=== PATIENT | male | born 1950 | race Caucasian/White ===

== ENCOUNTER 2016-05-26 16:49 | Emergency (ER) | payer OTHER ==
--- NOTE | 2016-05-26 18:03 | RADIOLOGY REPORT ---
EXAMINATION: XR CHEST CLINICAL INFORMATION: Cough. Evaluate for pneumonia. COMPARISON: None. TECHNIQUE: PA and lateral views of the chest were obtained. FINDINGS: PA and lateral views of the chest demonstrate pulmonary hypoinflation. There is a left retrocardiac opacity. This could reflect atelectasis although infection cannot be excluded. No pleural effusions or pneumothoraces. Cardiomediastinal contours are within normal limits. Soft tissues are unremarkable. No acute osseous abnormality is identified. IMPRESSION: A left retrocardiac opacity could reflect atelectasis given low lung volumes although superimposed pneumonia cannot be excluded in the appropriate clinical setting.
--- NOTE | 2016-05-26 18:24 | ED DYSPNEA/ASTHMA COMPLAINT ---
History of Present Illness General Chief Complaint: Upper Respiratory Sx/Fever Stated Complaint: ?PNA Source: patient, family Exam Limitations: no limitations Vital Signs & Intake/Output Vital Signs & Intake/Output Vital Signs Date Time Temp Pulse Resp B/P Pulse O2 O2 Flow FiO2 Ox Delivery Rate 05/27 2015 97.4 76 16 153/78 96 Room Air 05/26 1707 96.4 77 18 137/81 97 Room Air Allergies Coded Allergies: No Known Allergies (05/26/16) Triage Note: TRIAGE; PT TO ED FOR NOT FEELING WELL. [facility]. TOLD HE MAY HAVE WALKING PNA, AND PLACED ON DOXYCYCLINE. CALLED PCP AND HAS APPT FOR TOMORROW BUT DUE TO SNOW TOMORROW SUGGESTED TO COME HERE. STATES HE HAS A NONPRODUCTIVE COUGH, AFEBRILE IN TRIAGE AT 96.4. DENIES ANY SOB, DENIES ANY CP. Triage Nurses Notes Reviewed? yes HPI: Patient sensitivity ER for evaluation of a nonproductive cough and chills. [facility] and has been on 2 different antibiotics if his symptoms are worsening. Patient denies any chest pain or chest tightness. There is no shortness of breath. There is no orthopnea or dyspnea on exertion. There is no anorexia. Patient had an appointment to see his primary care doctor tomorrow but the office is closed because of the snow that is coming so he was instructed to come to the emergency room for evaluation. Past History Travel History Traveled to [place] past 21 day No Medical History Any Pertinent Medical History? see below for history Endocrine: diabetes ("BOARDERLINE") Surgical History Surgical History: non-contributory Psychosocial History Tobacco Use: Quit >30 days ago ETOH Use: denies use Illicit Drug Use: denies illicit drug use Family History Hx Contributory? No Review of Systems Review of Systems Constitutional: Reports: see HPI, chills. EENTM: Reports: no symptoms. Respiratory: Reports: see HPI, cough. Cardiovascular: Reports: no symptoms. GI: Reports: no symptoms. Genitourinary: Reports: no symptoms. Musculoskeletal: Reports: no symptoms. Skin: Reports: no symptoms. Neurological/Psychological: Reports: no symptoms. Hematologic/Endocrine: Reports: no symptoms. Immunologic/Allergic: Reports: no symptoms. All Other Systems: Reviewed and Negative Physical Exam Physical Exam General Appearance: well developed/nourished, alert, awake Head: atraumatic, normal appearance Eyes: Bilateral: PERRL, EOMI. Ears, Nose, Throat: normal pharynx, normal ENT inspection, hearing grossly normal Neck: normal inspection, supple, full range of motion Respiratory: normal breath sounds, chest non-tender, no respiratory distress, lungs clear Cardiovascular: regular rate/rhythm, normal peripheral pulses Gastrointestinal: normal bowel sounds, soft, non-tender Extremities: normal inspection, normal capillary refill, normal range of motion, no edema Neurologic/Psych: no motor/sensory deficits, awake, alert, oriented x 3, normal mood/affect Skin: intact, normal color, warm/dry Lymphatic: no anterior cervical lavon Core Measures ACS in differential dx? No Severe Sepsis Present: No Septic Shock Present: No Progress Differential Diagnosis: asthma, bronchitis, CHF, COPD, pneumonia, pneumothorax Plan of Care: Orders Procedure Date/time Status COMPREHENSIVE METABOLIC PANEL 05/26 1850 Complete CBC WITHOUT DIFFERENTIAL 05/26 1850 Complete Laboratory Tests 05/26/16 1901: Anion Gap 8, Estimated GFR > 60, BUN/Creatinine Ratio 11.3, Glucose 125 H, Calcium 9.3, Total Bilirubin 1.1, AST 70 H, ALT 121 H, Alkaline Phosphatase 96 , Total Protein 6.9, Albumin 3.8, Globulin 3.1, Albumin/Globulin Ratio 1.2, CBC w Diff NO MAN DIFF REQ, RBC 4.78, MCV 87.8, MCH 29.5, RDW 12.5, MPV 6.4 L, Gran % 72.9, Lymphocytes % 16.4 L, Monocytes % 7.1, Eosinophils % 3.2, Basophils % 0.4, Absolute Granulocytes 5.3, Absolute Lymphocytes 1.2, Absolute Monocytes 0.5 , Absolute Eosinophils 0.2, Absolute Basophils 0, PUBS MCHC 33.7 Diagnostic Imaging: Viewed by Me: Radiology Read. Discussed w/RAD: Radiology Read. CXR Impression: PATIENT: OPAL PUGH PRESENT AGE: 66 PATIENT ACCOUNT NO: [id number] : 52 LOCATION: [facility] ORDERING PHYSICIAN: SINGH TORRES DO (TBS) SERVICE DATE: 05/26/16-1707 EXAM TYPE: RAD - XRY- CHEST XRAY, PA AND LATERAL EXAMINATION: XR CHEST CLINICAL INFORMATION: Cough. Evaluate for pneumonia. COMPARISON: None. TECHNIQUE: PA and lateral views of the chest were obtained. FINDINGS: PA and lateral views of the chest demonstrate pulmonary hypoinflation. There is a left retrocardiac opacity. This could reflect atelectasis although infection cannot be excluded. No pleural effusions or pneumothoraces. Cardiomediastinal contours are within normal limits. Soft tissues are unremarkable. No acute osseous abnormality is identified. IMPRESSION : A left retrocardiac opacity could reflect atelectasis given low lung volumes although superimposed pneumonia cannot be excluded in the appropriate clinical setting. DICTATED BY: ODILON BAIRES MD DATE/TIME DICTATED:05/26/161750 JANITOR SUPERVISOR:MAYI DATE/TIME TRANSCRIBED:05/26/161750 CONFIDENTIAL, DO NOT COPY WITHOUT APPROPRIATE AUTHORIZATION. <Electronically signed in Other Vendor System> SIGNED BY: ODILON BAIRES MD 05/26/16 0787 Initial ED EKG: none Departure Departure Disposition: HOME OR SELF CARE Condition: Stable Clinical Impression Primary Impression: Pneumonia Referrals: AZEB NGUYEN APRN (PCP/Family) Additional Instructions: STOP THE DOXYCYCLINE TAKE AUGMENTIN PRESCRIBED TAKE ROBITUSSIN WITH CODEINE NEEDED FOR COUGH. DO NOT DRIVE AFTER TAKING THE COUGH MEDICINE. Departure Forms: Customer Survey General Discharge Information Prescriptions: Current Visit Scripts Amoxicillin/Potassium Clav (Augmentin 875-125 Tablet) 1 TAB PO BID #20 TAB Robitussin AC (Guaifenesin-Codeine Syrup) 10 ML PO Q6P PRN COUGH #240 ML Critical Care Note Critical Care Note Critical Care Time: non-applicable
[2016-05-26 19:09] LABS: ABSOLUTE BASOPHIL COUNT 0 /CUMM (0.0-0.2); ABSOLUTE EOSINOPHIL COUNT 0.2 /CUMM (0.0-0.7); ABSOLUTE GRANULOCYTE CT 5.3 /CUMM (1.4-6.5); ABSOLUTE LYMPH COUNT 1.2 /CUMM (1.2-3.4); ABSOLUTE MONOCYTE COUNT 0.5 /CUMM (0.10-0.60); BASOPHIL % 0.4 % (0.0-2.0); EOSINOPHIL % 3.2 % (0-5); GRANULOCYTE % 72.9 % (42.2-75.2); MEAN CORPUSCULAR HGB 29.5 PG (27.0-31.0); MEAN CORPUSCULAR HGB CONC 33.7 G/DL (33.0-37.0); MEAN CORPUSCULAR VOLUME 87.8 FL (80.0-94.0); MEAN PLATELET VOLUME 6.4 FL (7.4-10.4); PLATELET COUNT 345 /CUMM (130-400); RBC DISTRIBUTION WIDTH 12.5 % (11.5-14.5); RED BLOOD CELL CT 4.78 /CUMM (4.70-6.10); WHITE BLOOD CELL COUNT 7.2 /CUMM (4.8-10.8)
[2016-05-26] MEDS ORDERED: AUGMENTIN 875-1 EACH PO ×2 (20:21→21:45)
[2016-05-26] MEDS ORDERED: GUAIFENESIN-COD10 ML PO ×2 (20:21→21:45)
[2016-05-26 21:43] VITALS: BP 142/76
== END 2016-05-26 21:45 ==
LOC: ERH 16:49
PROVIDERS: Emergency Medicine
DX: J18.9 Pneumonia, unspecified organism (principal)
CPT/HCPCS: 96374; 96375; J0456; J0696; J7060